=== PATIENT | male | born 1945 | race Caucasian/White ===

== ENCOUNTER 2017-01-27 01:16 | Emergency (ER) | payer OTHER ==
--- NOTE | 2017-01-27 01:33 | CPEKG ---
Heart Rate: 88 RR Interval: 682 P-R Interval: 168 QRSD Interval: 102 QT Interval: 356 QTC Interval: 431 P Preston: 16 QRS Preston: 38 T Wave Preston: 16 EKG Severity - BORDERLINE ECG - EKG Impression: SINUS RHYTHM EKG Impression: BORDERLINE INFERIOR Q WAVES Electronically Signed By: Fernando Cao 28-Jan-2017 02:47:43
[2017-01-27] MEDS ORDERED: ASPIRIN 81 MG CHEWABLE TAB ONE (01:35)
[2017-01-27] MEDS ORDERED: NITROGLYCERIN 0.4 MG BTL SL ONE ×2 (01:35→01:45)
--- NOTE | 2017-01-27 01:37 | EDPHY ---
H & P Stated Complaint: chest pain Time Seen by Provider: 01/27/17 01:34 HPI/ROS: Chief Complaint: Chest pain HPI: 71-year-old male began having chest pain while at rest at 9 o'clock yesterday evening (4.5 hours ago). Pain is described as a tightness in his service chest going to both of his shoulders. At worst is a 9/10. He did take a Vicodin is now down to a 4/10. Patient does state that he did go in lift weights and played basketball for the 1st time in a month yesterday. Has not had any shortness of breath. No fevers or chills. No cough. Does not have a history of similar pain. Father had a heart attack at about the age of 70. Otherwise no other risk factors for coronary artery disease. No recent immobility or travel. No calf pain or swelling. ROS: 10 point Review of Systems is negative except as noted in the HPI. PMH: None Medications: None Allergies: No known drug allergies Social History: No smoking, occasional alcohol, no recreational drug use Family History: Father had heart attack at age 70 Physical Exam: Gen: Awake, Alert, No Distress HEENT: Nose: no rhinorrhea Eyes: PERRLA, EOMI Mouth: Moist mucosa Neck: Supple, no JVD Chest: nontender, lungs clear to auscultation Heart: S1, S2 normal, no murmur Abd: Soft, non-tender, no guarding Back: no CVA tenderness, no midline tenderness Ext: no edema, non-tender Skin: no rash Neuro: CN II-XII intact, Sensation grossly intact, Strength 5/5 in bilateral upper and lower extremities - Personal History Current Tetanus/Diphtheria Vaccine: Yes Current Tetanus Diphtheria and Acellular Pertussis (TDAP): Yes - Medical/Surgical History Hx Asthma: No Hx Chronic Respiratory Disease: No Hx Diabetes: No Hx Cardiac Disease: No Hx Renal Disease: No Hx Cirrhosis: No Hx Alcoholism: No Hx HIV/AIDS: No Hx Splenectomy or Spleen Trauma: No - Social History Smoking Status: Never smoked Constitutional: Initial Vital Signs Temperature (C) 36.6 C 01/27/17 01:20 Heart Rate 88 01/27/17 01:20 Respiratory Rate 18 01/27/17 01:20 Blood Pressure 140/98 H 01/27/17 01:20 O2 Sat (%) 93 04/24/17 01:20 O2 Delivery Mode Room Air Allergies/Adverse Reactions: No Known Allergies Allergy (Unverified 01/27/17 01:20) Home Medications: Medication Instructions Recorded NK [No Known Home Meds] 01/27/17 Medical Decision Making - Diagnostics EKG Interpretation: ECG time 1:30 a.m. sinus rhythm with a rate of 88, normal axis, normal intervals , no acute ST or T-wave changes. Impression: Normal ECG. Imaging Results: Chest x-ray: Negative per my interpretation Imaging: I viewed and interpreted images myself ED Course/Re-evaluation: 0145 no change in pain after 1 nitroglycerin. 0230 patient is now stating he has pain only in front of his chest when he takes deep inspiration. Troponin is undetectable. This is a 4.5 hour troponin. Patient states he feels that the pain is in his front of his chest wall. Morning that his symptoms are consistent with muscle strain given he worked out in lifted weights for the 1st time yesterday in over a month. He has been lifting heavy boxes and moving. In with a ladder earlier as well he is telling me. His ECG is entirely normal. His troponin is undetected. Will check a D-dimer. He is otherwise low risk. This is normal will discharge with follow-up with his primary care physician for an outpatient stress test. Will also give him ibuprofen out to see if this helps his pain. He has not had any relief nitroglycerin. D-dimer is negative. Patient improved. Will discharge with follow-up with primary care physician for outpatient testing and re-evaluation. - Data Points Laboratory Results: Laboratory Results 01/27/17 01:40 01/27/17 01:40 01/27/17 01/27/17 01/27/17 01:40 01:40 01:40 WBC 9.53 10^3/uL H 10^3/uL (3.80-9.50) RBC 4.90 10^6/uL 10^6/uL (4.40-6.38) Hgb 16.0 g/dL g/dL (13.7-17.5) Hct 45.3 % % (40.0-51.0) MCV 92.4 fL fL (81.5-99.8) MCH 32.7 pg pg (27.9-34.1) MCHC 35.3 g/dL g/dL (32.4-36.7) RDW 12.9 % % (11.5-15.2) Plt Count 207 10^3/uL 10^3/uL (150-400) MPV 8.6 fL L fL (8.7-11.7) Neut % (Auto) 78.5 % H % (39.3-74.2) Lymph % (Auto) 9.8 % L % (15.0-45.0) [place] % (Auto) 10.6 % % (4.5-13.0) Eos % (Auto) 0.3 % L % (0.6-7.6) Baso % (Auto) 0.4 % % (0.3-1.7) Nucleat RBC Rel Count 0.0 % % (0.0-0.2) Absolute Neuts (auto) 7.48 10^3/uL H 10^3/uL (1.70-6.50) Absolute Lymphs (auto) 0.93 10^3/uL L 10^3/uL (1.00-3.00) Absolute Monos (auto) 1.01 10^3/uL H 10^3/uL (0.30-0.80) Absolute Eos (auto) 0.03 10^3/uL 10^3/uL (0.03-0.40) Absolute Basos (auto) 0.04 10^3/uL 10^3/uL (0.02-0.10) Absolute Nucleated RBC 0.00 10^3/uL 10^3/uL (0-0.01) Immature Gran % 0.4 % % (0.0-1.1) Immature Gran # 0.04 10^3/uL 10^3/uL (0.00-0.10) D-Dimer 0.34 ug/mLFEU ug/mLFEU (0.00-0.50) Sodium 138 mEq/L mEq/L (134-144) Potassium 4.4 mEq/L mEq/L (3.5-5.2) Chloride 107 mEq/L mEq/L (97-110) Carbon Dioxide 21 mEq/l L mEq/l (22-31) Anion Gap 10 mEq/L mEq/L (8-16) BUN 21 mg/dL mg/dL (7-23) Creatinine 0.8 mg/dL mg/dL (0.7-1.3) Estimated GFR > 60 Glucose 127 mg/dL H mg/dL (70-100) Calcium 9.3 mg/dL mg/dL (8.5-10.4) Troponin I < 0.012 ng/mL ng/mL (0-0.034) Medications Given: Discontinued Medications Aspirin (Aspirin) 324 mg PO EDNOW ONE Stop: 01/27/17 01:46 Last Admin: 01/27/17 01:30 Dose: 324 mg Ibuprofen (Motrin) 600 mg PO EDNOW ONE Stop: 01/27/17 02:24 Last Admin: 01/27/17 02:28 Dose: 600 mg Nitroglycerin (Nitrostat) 0.4 mg SL EDNOW ONE Stop: 01/27/17 01:46 Last Admin: 01/27/17 01:30 Dose: 0.4 mg Departure - Departure Disposition: Home, Routine, Self-Care Clinical Impression: Chest pain Condition: Good Instructions: Chest Pain (ED) Additional Instructions: Follow up with primary care physician in 2-3 days to arrange for outpatient stress test. Return emergency department for increasing chest pain, shortness of breath, fainting, or any other concerns. Referrals: Stefani Luu MD [Primary Care Provider] - As per Instructions
[2017-01-27] MEDS ORDERED: ASPIRIN 81 MG CHEWABLE TAB PO ONE (01:45)
[2017-01-27 01:48] LABS: % IMMATURE GRANULYOCYTES 0.4 % (0.0-1.1); ABSOLUTE IMMATURE GRANULOCYTES 0.04 10^3/uL (0.00-0.10); ADD DIFF? NO; ADD MORPH? NO; ADD SCAN? NO; ATYPICAL LYMPHOCYTE FLAG 0 (0-99); FRAGMENT RBC FLAG 0 (0-99); HEMATOCRIT 45.3 % (40.0-51.0); LEFT SHIFT FLG 0 (0-99); LIPEMIA HEMOLYSIS FLAG 90 (0-99); MEAN CELL HEMOGLOBIN 32.7 pg (27.9-34.1); MEAN CELL HEMOGLOBIN CONCENTR. 35.3 g/dL (32.4-36.7); MEAN CELL VOLUME 92.4 fL (81.5-99.8); MEAN PLATELET VOLUME 8.6 fL (8.7-11.7); PLATELET CLUMPS FLAG 0 (0-99); PLATELET COUNT 207 10^3/uL (150-400); RED CELL DISTRIBUTION WIDTH 12.9 % (11.5-15.2)
[2017-01-27 01:59] LABS: ANION GAP 10 mEq/L (8-16); CALCIUM 9.3 mg/dL (8.5-10.4); CARBON DIOXIDE 21 mEq/l (22-31); CHLORIDE 107 mEq/L (97-110); CREATININE 0.8 mg/dL (0.7-1.3); GLOMERULAR FILTRATION RATE > 60; GLUCOSE 127 mg/dL (70-100); POTASSIUM 4.4 mEq/L (3.5-5.2); SODIUM 138 mEq/L (134-144)
[2017-01-27 02:11] LABS: TROPONIN I < 0.012 ng/mL (0-0.034)
[2017-01-27] MEDS ORDERED: IBUPROFEN 600 MG TAB PO ONE (02:23)
[2017-01-27 02:43] VITALS: O2SAT 93
[2017-01-27 03:18] VITALS: BP 126/75; PULSE 83; RESP 16; TEMP 98.1
== END 2017-01-27 03:18 | disposition home or self-care (01) ==
DX: R07.9 Chest pain, unspecified (principal)

== ENCOUNTER → 2017-05-20 | Outpatient (CLI) | payer OTHER | LOC: FIMAGING 14:03 | PROVIDERS: ATTEND Family Medicine | DX: M79.661 Pain in right lower leg (principal) ==

== ENCOUNTER → 2017-07-15 | Outpatient (CLI) | payer OTHER | LOC: FIMAGING 09:34 | PROVIDERS: ATTEND Family Medicine | DX: Z13.6 Encounter for screening for cardiovascular disorders (principal) ==